=== PATIENT | female | born 1960 | race Caucasian/White ===

== ENCOUNTER → 2017-01-02 | Outpatient (CLI) | payer MEDICAID ==
--- NOTE | 2017-01-03 10:58 | MM ---
Reason for exam: screening (asymptomatic). Last mammogram was performed 5 years ago. History: Patient is nulliparous. Physical Findings: A clinical breast exam by your physician is recommended on an annual basis and results should be correlated with mammographic findings. MG 3D Screening Mammo W/Cad Bilateral CC and MLO view(s) were taken. Prior study comparison: January 06, 2012, bilateral digital screening mammo w/CAD. The breast tissue is heterogeneously dense. This may lower the sensitivity of mammography. Finding: There are typically benign round calcifications in both breasts. Asymmetric breast tissue, stable. There is a chronic nodularity in the right breast. There is no discrete abnormality. ASSESSMENT: Benign, BI-RAD 2 RECOMMENDATION: Routine screening mammogram of both breasts in 1 year.
== END | disposition home or self-care (01) ==
LOC: RADMAMWWP 07:19
PROVIDERS: ATTEND Internal Medicine
DX: Z12.31 Encounter for screening mammogram for malignant neoplasm of breast (principal)
CPT/HCPCS: 77063; G0202

== ENCOUNTER → 2017-01-09 | Outpatient (CLI) | payer MEDICAID ==
[2017-01-09 08:13] LABS: CH 22.6; HCT 37.3 % (34.0-46.0); HGB 11.1 gm/dL (11.4-16.0); Hypochromasia Marked; MCH 22.6 pg (25.0-35.0); MCHC 29.8 g/dL (31.0-37.0); MCV 75.7 fL (80.0-100.0); Mean Platelet Volume 6.6; Microcytosis Slight; RBC 4.93 m/uL (3.80-5.40); RDW 15.8 % (11.5-15.5); WBC 5.5 k/uL (3.8-10.6)
[2017-01-09 13:24] LABS: ALT 34 U/L (9-52); AST 22 U/L (14-36); Alkaline Phosphatase 78 U/L (38-126); Anion Gap 10 mmol/L; Blood Urea Nitrogen 16 mg/dL (7-17); Calcium 9.4 mg/dL (8.4-10.2); Carbon Dioxide 24 mmol/L (22-30); Chloride 107 mmol/L (98-107); Cholesterol 200 mg/dL (<200); Glucose 107 mg/dL (74-99); HDL Cholesterol 66 mg/dL (40-60); Non-African American GFR(MDRD) >60 (>60 ml/min/1.73 sqM); Potassium 4.3 mmol/L (3.5-5.1); Sodium 141 mmol/L (137-145); Total Bilirubin 0.5 mg/dL (0.2-1.3); Total Protein 7.4 g/dL (6.3-8.2); Triglycerides 167 mg/dL (<150)
== END ==
LOC: LABWHC1 07:16
PROVIDERS: ATTEND Internal Medicine Clinical Cardiac Electrophysiology
DX: Z00.00 Encounter for general adult medical examination without abnormal findings (principal); E03.9 Hypothyroidism, unspecified; I10 Essential (primary) hypertension; E78.5 Hyperlipidemia, unspecified; R55 Syncope and collapse; E55.9 Vitamin D deficiency, unspecified; Z13.220 Encounter for screening for lipoid disorders
CPT/HCPCS: 36415; 80053; 80061; 82306; 82533; 84439; 84443; 85027

== ENCOUNTER 2017-01-12 13:36 | Day surgery (SDC) | payer MEDICAID ==
[2017-01-11 08:57] VITALS: BMI 46.6
[~2017-01-12 13:36] MED LIST: SODIUM CHLORIDE 0.9% 1,000 ML IV SCH
[2017-01-12 14:12] VITALS: PULSE 74; RESP 18
[2017-01-12 15:47] VITALS: BP 130/71; TEMP 98
--- NOTE | 2017-01-12 18:01 | P.PCN ---
Preoperative Diagnosis: Twelve-lead ECG report ECG shows sinus rhythm normal IA narrow QRS normal ST segments No delta waves no epsilon waves normal QT interval Tilt table test report Baseline blood pressure 139/80 mmHg Baseline heart rate 81 beats a minute Patient was tilted upright at an angle of 70 per protocol her blood pressure remained stable between 133-154 mmHg and the diastolics remained in the 70s and 80s. There was no sudden drop in blood pressure Mild increase in heart rate up to 10 points in the first 10 minutes Impression Mildly elevated blood pressure at baseline No evidence for neurocardiogenic syncope or dysautonomia Disposition: same day
== END 2017-01-12 15:30 | disposition home or self-care (01) ==
LOC: CATHEP 13:36
PROVIDERS: ATTEND Internal Medicine Clinical Cardiac Electrophysiology
DX: R55 Syncope and collapse (principal); I10 Essential (primary) hypertension; Z68.42 Body mass index [BMI] 45.0-49.9, adult; E89.0 Postprocedural hypothyroidism; Z79.899 Other long term (current) drug therapy
CPT/HCPCS: 93005; 93660

== ENCOUNTER → 2017-01-24 | Outpatient (CLI) | payer MEDICAID ==
--- NOTE | 2017-01-24 11:48 | ECHOS ---
DATE OF SERVICE: 01/24/2017 AGE: 57Y SEX: F HT: 68" WT: 305 lbs. Protocol Casper: X Others: Stress Echo Stage: 2 Dur. of Exercise: 5:00 *Heart Rate Blood Pressure *Rest: 98 Rest: 111/47 * *Max. Achieved: 157 Maximum BP: 213/80 85% PMHR: 140 100% PMHR: 165 *METS: 6.8 INDICATIONS: Chest pain. MEDICATIONS: Diovan, Synthroid, Effexor CLINICAL INFORMATION: Hypertension, hypercholesterolemia and depression. History of atypical chest pains, hypertension. Resting ECG shows sinus rhythm, rate of 98 beats per minute, MS interval of 0.16, QRS 0.08, normal ST-T waves. Utilizing a standard Casper protocol, a symptom-limited treadmill test was performed. Patient exercised for a total of 5 minutes, attained a peak heart rate of 157 beats per minute which is approximately 97% of predicted maximum heart rate without any chest pain or pressure or ST segment deviations indicative of ischemia or cardiac arrhythmias. Baseline images of normal thickening and contractility. Post-exercise images shows improved contractibility and thickening consistent with normal stress echocardiogram. Patient tolerated the procedure very well. IMPRESSION: 1. Normal stress echocardiogram. 2. Patient has slightly below average level of cardiopulmonary fitness as indicated by O2 max and METS. Patient attained peak metabolic activity equivalent to 6 METs. 3. Patient did not report any symptoms.
== END | disposition home or self-care (01) ==
LOC: RADNMMAIN 09:50
PROVIDERS: ATTEND Internal Medicine Clinical Cardiac Electrophysiology
DX: R07.9 Chest pain, unspecified (principal)
CPT/HCPCS: 93017; 93350

== ENCOUNTER 2017-05-30 04:49 | Emergency (ER) | payer MEDICAID ==
[2017-05-30] MEDS ORDERED: IBUPROFEN 800 MG TAB PO STA (05:16)
--- NOTE | 2017-05-30 05:32 | XR ---
EXAM: XR Right Shoulder Complete, 2 or More Views CLINICAL HISTORY: Reason: Pain TECHNIQUE: Two or more views of the right shoulder. COMPARISON: No relevant prior studies available. FINDINGS: Bones/joints: Inferolateral subluxation of the humeral head. Degenerative joint space loss of the acromioclavicular joint. No acute fracture. Soft tissues: Soft tissues are preserved. IMPRESSION: Inferolateral subluxation of the humeral head.
--- NOTE | 2017-05-30 06:02 | ED ---
General Adult HPI - General Chief complaint: Extremity Problem,Nontraumatic Stated complaint: Right Shoulder Pain Time Seen by Provider: 05/30/17 05:07 Source: patient, family, RN notes reviewed Mode of arrival: ambulatory Limitations: no limitations - History of Present Illness Initial comments: 57-year-old female presents with right shoulder pain. This is progressed over the last 2-3 days. Initially was achy, and tolerable. Progress to more severe pain prompting an ER visit. Patient denies any specific trauma. Her states they did move a dresser approximately one week ago but there was no pain after removing the dresser and several days. Pain in between. She does not report any pulling or tugging on her arm, no fall. Patient denies fever or chills. Pain is worse with movement. No history of shoulder dislocation. - Related Data Home Medications Medication Instructions Recorded Confirmed Levothyroxine Sodium [Synthroid] 200 mcg PO QAM 01/28/16 05/30/17 Valsartan [Valsartan] 1 tab PO QAM 01/28/16 05/30/17 Venlafaxine HCl [Venlafaxine HCl 150 mg PO QAM 01/28/16 05/30/17 ER] Ergocalciferol (Vitamin D2) 50,000 unit PO WEEKLY 01/12/17 05/30/17 [Vitamin D2] Previous Rx's Medication Instructions Recorded HYDROcodone/APAP 5-325MG [Sadorus 1 tab PO Q6HR PRN #24 tab 05/30/17 5-325] Ibuprofen [Motrin] 600 mg PO Q8HR PRN #30 tab 05/30/17 Allergies Allergy/AdvReac Type Severity Reaction Status Date / Time No Known Allergies Allergy Verified 05/30/17 05:00 Review of Systems ROS Statement: Those systems with pertinent positive or pertinent negative responses have been documented in the HPI. ROS Other: All systems not noted in ROS Statement are negative. Past Medical History Past Medical History: Hypertension, Thyroid Disorder Additional Past Medical History / Comment(s): HAS HAD A DROP IN HEMOGLOBIN History of Any Multi-Drug Resistant Organisms: None Reported Past Surgical History: Bariatric Surgery Additional Past Surgical History / Comment(s): GASTRIC BYPASS. THYROIDECTOMY. Past Anesthesia/Blood Transfusion Reactions: Motion Sickness, Postoperative Nausea & Vomiting (PONV) Past Psychological History: Depression Smoking Status: Never smoker Past Alcohol Use History: None Reported Past Drug Use History: None Reported - Past Family History Mother Family Medical History: Cancer Additional Family Medical History / Comment(s): COLON. General Exam Limitations: no limitations General appearance: alert, in distress Head exam: Present: atraumatic, normocephalic Eye exam: Present: normal appearance, PERRL Neck exam: Present: normal inspection, tenderness, full ROM Respiratory exam: Absent: respiratory distress Cardiovascular Exam: Present: tachycardia GI/Abdominal exam: Present: soft. Absent: distended, tenderness Extremities exam: Present: tenderness, other (Patient is holding her right upper extremity across her abdomen, unwilling to move this joint secondary to pain. There is no tenderness over the joint itself, no erythema no tenderness at the AC joint.). Absent: full ROM Neurological exam: Present: alert, oriented X3 Psychiatric exam: Present: normal affect, normal mood Skin exam: Present: warm, dry, intact Course Vital Signs 05/30/17 04:53 Temperature 98.5 F Pulse Rate 108 H Respiratory 20 Rate Blood Pressure 147/80 O2 Sat by Pulse 96 Oximetry Medical Decision Making - Medical Decision Making 57-year-old female presenting with severe atraumatic right shoulder pain. On examination patient does not want to move at the shoulder joint secondary to pain. There is no overlying tenderness. No fever or chills. Patient does not appear toxic, she is well-appearing. There is no history of fever or chills. X -ray of the right shoulder is obtained and does show inferior subluxation. No acute fracture. No history to support this finding. Case is discussed with orthopedic surgery Dr. Ascencio. Patient is able to have close outpatient follow- up with orthopedic surgery. She is placed in a sling. Given prescription for pain medication. Patient is agreeable with this plan. Disposition Clinical Impression: Shoulder subluxation, right Disposition: HOME SELF-CARE Condition: Good Instructions: Shoulder Dislocation (ED) Prescriptions: HYDROcodone/APAP 5-325MG [Sadorus 5-325] 1 tab PO Q6HR PRN #24 tab PRN Reason: Pain Ibuprofen [Motrin] 600 mg PO Q8HR PRN #30 tab PRN Reason: Pain Referrals: Shannan Brown MD [Primary Care Provider] - 1-2 days
[2017-05-30 06:22] VITALS: BP 150/82; PULSE 97; RESP 16; TEMP 98.6
== END 2017-05-30 06:22 | disposition home or self-care (01) ==
LOC: EC 04:49
DX: S43.001A Unspecified subluxation of right shoulder joint, initial encounter (principal); I10 Essential (primary) hypertension; E07.9 Disorder of thyroid, unspecified; F32.9 Major depressive disorder, single episode, unspecified; X58.XXXA Exposure to other specified factors, initial encounter
CPT/HCPCS: 99283

== ENCOUNTER → 2017-06-01 | Outpatient (CLI) | payer MEDICAID ==
--- NOTE | 2017-06-01 16:02 | MR ---
EXAMINATION TYPE: MR shoulder RT wo con DATE OF EXAM: 06/01/2017 COMPARISON: Right shoulder radiographs dated 05/30/2017 HISTORY: pain rt shoulder. No known injury. TECHNIQUE: Multiplanar, multisequence imaging of the right shoulder is performed without contrast. FINDINGS: Rotator Cuff: There is a high-grade partial-thickness tear of the supraspinatus measuring at least 1. 2 x 1.4 cm with few posterior fibers remaining and no anterior fibers seen. There is high signal with in the insertional fibers of the infraspinatus with bursal surface fraying with no distinct tear. There is attenuation of the insertional fibers of the subscapularis, not well-defined on the axial im ages although appear to insert on the rotator cuff on sagittal images compatible with high-grade tend inopathy of the insertional fibers. Additionally diffuse high signal in the deep fibers, inferiorly r elate to complete tear of the deep fibers with intact remainder of the muscle. Teres minor appears intact. Acromioclavicular Joint: There is moderate acromioclavicular arthropathy with capsular hypertrophy, s ubchondral cysts, and marginal osteophytes. Joint space narrowing is also seen. Glenohumeral Joint: Loculated fluid is seen within the subcoracoid bursa as well as high signal withi n the axillary recess and a 1.3 cm ossific body as well as an adjacent 5 mm ossific body. Labrum: The labrum appears grossly intact given limitation of non-arthrogram study. There is global l abral degeneration. Biceps Tendon: There is also thickening and attenuation of the intracapsular portion of the biceps t endon with high signal internally relating to a split tear. Bone marrow signal: No focal abnormal marrow signal is appreciated. Other: The previously seen subluxation of the humeral head on the prior radiograph is no longer visua lized. IMPRESSION: 1. High-grade partial-thickness tear of the supraspinatus measuring 1.2 x 1.4 cm with few posterior f ibers remaining. 2. Infraspinatus tendinopathy with bursal surface fraying. No tear. 3. Full-thickness isolated tear of the deep fibers of the subscapularis. 4. Split tear of the intracapsular portion of the biceps tendon. 5. Subcoracoid bursitis.
== END | disposition home or self-care (01) ==
LOC: RADMRIMAIN 13:42
PROVIDERS: ATTEND Orthopaedic Surgery Sports Medicine
DX: M75.101 Unspecified rotator cuff tear or rupture of right shoulder, not specified as traumatic (principal); M75.51 Bursitis of right shoulder; M75.81 Other shoulder lesions, right shoulder